=== PATIENT | female | born 1945 | race Caucasian/White ===

== ENCOUNTER → 2018-01-27 | Day surgery (SDC) | payer MEDICARE, MEDICAID ==
[~2018-01-27] MED LIST: Ketorolac 30 MG/ML SDV IVPUSH ONE; Ondansetron 4 MG/2 ML SDV IV ONE; Phenylephrine 1% 10 MG/ML SDV IV ONE; Succinylcholine 200 MG/10 ML MDV IV ONE; fentaNYL 100 MCG/2 ML SDV IV ONE
[2018-01-27] MEDS: Lactated Ringers 1,000 ML IV SCH (11:45)
[2018-01-27 15:14] VITALS: BP 106/84
[2018-01-27] MEDS: traMADol 50 MG Tab PO ONE (16:25)
== END ==
LOC: CC.SDS 11:01
PROVIDERS: ATTEND Dentist General Practice
DX: K02.9 Dental caries, unspecified (principal); G30.9 Alzheimer's disease, unspecified; F41.9 Anxiety disorder, unspecified; Z91.89 Other specified personal risk factors, not elsewhere classified; F32.9 Major depressive disorder, single episode, unspecified; K21.9 Gastro-esophageal reflux disease without esophagitis; E11.9 Type 2 diabetes mellitus without complications
CPT/HCPCS: 00170; 82962; 93005; 93010; A9270-GY; J0330; J1885; J2370; J2405; J3010; J7120

== ENCOUNTER 2018-06-16 10:14 | Emergency (ER) | payer MEDICARE, MEDICAID ==
[2018-06-16] MEDS ORDERED: fentaNYL 100 MCG/2 ML SDV IVPUSH PRN ×2 (10:31→11:33)
--- NOTE | 2018-06-16 10:38 | EDM.PDOC ---
ED HPI GENERAL MEDICAL PROBLEM - General Chief Complaint: Lower Extremity Injury/Pain Stated Complaint: FELL AT PHAN/HIP Time Seen by Provider: 06/16/18 10:15 Source of Information: Reports: Family, Shelter Records History Limitations: Reports: Altered Mental Status - History of Present Illness INITIAL COMMENTS - FREE TEXT/NARRATIVE: Patient presents from [facility] with right hip pain. Was up to the bathroom and when assisting back to her room, staff heard a loud pop from the right hip and then she went down to the floor. Did not hit her head, staff was there when her leg gave out. No loss of consciousness. She is crying with any palpation of her right hip. Is nonverbal. Patient has a history of Alzheimer's Dementia, resident at [facility]. Significant other is at bedside, she does seem to recognize him. Does ambulate with staff at the home on a normal basis. Patient has history of Alzheimer's Dementia, Insulin-dependent diabetes, hypertension. Onset: Today, Sudden Duration: Hour(s): Location: Reports: Lower Extremity, Right - Related Data Allergies Allergy/AdvReac Type Severity Reaction Status Date / Time benzonatate Allergy Difficulty Verified 06/16/18 10:43 [From Merly So] Breathing doxycycline Allergy Cannot Verified 06/16/18 10:43 Remember oxycodone HCl [From Roxicet] Allergy Abdominal Verified 06/16/18 10:43 Pain Home Meds: Home Meds Aspirin [Halfprin] 81 mg PO DAILY 08/13/13 [History] Mirtazapine [Remeron] 15 mg PO BEDTIME 08/13/13 [History] Multivitamin [Daily Multiple Vitamin] 1 tab PO DAILY 08/13/13 [History] Acetaminophen [Tylenol] 325 mg PO Q6HR PRN 01/26/18 [History] Cholecalciferol (Vitamin D3) [Vitamin D3] 1,000 unit PO DAILY 01/26/18 [History] Losartan/Hydrochlorothiazide [Losartan-HCTZ 100-12.5 MG] 1 tab PO DAILY [History] Polyethylene Glycol 3350 [Miralax] 17 gm PO DAILY 01/26/18 [History] Sennosides/Docusate Sodium [DOK Plus] 1 tab PO DAILY PRN 01/26/18 [History] ARIPiprazole [Abilify] 1 mg PO DAILY 01/27/18 [History] Insulin Aspart Protam & Aspart [Novolog Mix 70-30 Flexpen Syrn] 10 unit SQ ACDINNER 01/27/18 [History] Insulin Aspart Protam & Aspart [Novolog Mix 70-30 Flexpen Syrn] 20 unit SUBCUT ACBREAKFAST 01/27/18 [History] Potassium Chloride 20 meq PO DAILY 01/27/18 [History] Glucagon,Human Recombinant [Glucagon Emergency Kit] 1 mg IJ ONETIME PRN [History] Magnesium Hydroxide [Milk of Magnesia] 2,400 mg PO DAILY PRN 06/16/18 [History] Past Medical History Cardiovascular History: Reports: Hypertension Psychiatric History: Reports: Alzheimers Disease Endocrine/Metabolic History: Reports: Diabetes, Type II Social & Family History - Tobacco Use Smoking Status *Q: Unknown Ever Smoked Review of Systems - Review of Systems Review Of Systems: Unable To Obtain ED EXAM, GENERAL - Physical Exam Exam: See Below Exam Limited By: Altered Mental Status General Appearance: Alert, WD/WN, Mild Distress Ears: Normal External Exam, Normal TMs Nose: Normal Inspection, Normal Mucosa, No Blood Throat/Mouth: Normal Inspection, Normal Oropharynx Head: Atraumatic, Normocephalic Neck: Normal Inspection, Supple, Non-Tender Respiratory/Chest: No Respiratory Distress, Lungs Clear, Normal Breath Sounds Cardiovascular: Regular Rate, Rhythm GI/Abdominal: Normal Bowel Sounds, Soft, Non-Tender Extremities: Leg Pain, Limited Range of Motion, Other (tender to right hip with exam) Neurological: Alert, Other (patient has no verbal response, flat affect. Does cry and grimace with any movement of right hip.) Course - Vital Signs Last Recorded V/S: Last Vital Signs Temp 96.7 F 06/16/18 10:33 Pulse 78 06/16/18 10:33 Resp 18 06/16/18 10:33 BP 139/80 06/16/18 10:33 Pulse Ox 95 06/16/18 10:33 - Orders/Labs/Meds Orders: Active Orders 24 hr Category Date Time Status Hip Min 2V or 3V w Pelvis Rt [CR] Routine Exams 06/16/18 Taken fentaNYL [Sublimaze] Med 06/16/18 11:33 Active 25 mcg IVPUSH Q1H PRN Medication Orders Fentanyl (Sublimaze) 25 mcg IVPUSH Q1H PRN PRN Reason: Pain Meds: Medications Generic Name Dose Route Start Last Admin Trade Name Freq PRN Reason Stop Dose Admin Fentanyl 25 mcg 06/16/18 11:33 Sublimaze IVPUSH Q1H PRN Pain Discontinued Medications Generic Name Dose Route Start Last Admin Trade Name Freq PRN Reason Stop Dose Admin Fentanyl 25 mcg 06/16/18 10:31 06/16/18 10:30 Sublimaze IVPUSH 25 mcg Q6H PRN Administration Pain - Re-Assessments/Exams Free Text/Narrative Re-Assessment/Exam: 06/16/18 1055 Contacted [facility], initially spoke with Dr. Ballesteros, orthopedic. Did feel she will need surgical fixation of this. Consulted with Dr. Stewart, hospitalist, who accepted the patient in transfer. S service arranged. Departure - Departure Time of Disposition: 11:30 Disposition: DC/Tfer to [facility] 02 Condition: Fair Clinical Impression: Intertrochanteric fracture, hip - Discharge Information *PRESCRIPTION DRUG MONITORING PROGRAM REVIEWED*: No *COPY OF PRESCRIPTION DRUG MONITORING REPORT IN PATIENT MIRTHA: No Referrals: Alexi Garner MD [Primary Care Provider] - Forms: ED Department Discharge Additional Instructions: Transfer to [facility]. Stewart - My Orders Last 24 Hours: My Active Orders 06/16/18 Hip Min 2V or 3V w Pelvis Rt [CR] Routine 06/16/18 11:33 fentaNYL [Sublimaze] 25 mcg IVPUSH Q1H PRN - Assessment/Plan Last 24 Hours: My Active Orders 06/16/18 Hip Min 2V or 3V w Pelvis Rt [CR] Routine 06/16/18 11:33 fentaNYL [Sublimaze] 25 mcg IVPUSH Q1H PRN
[2018-06-16 10:43] VITALS: BP 139/80
== END 2018-06-16 12:05 ==
LOC: CC.ED 10:14
DX: S72.144A Nondisplaced intertrochanteric fracture of right femur, initial encounter for closed fracture (principal); I10 Essential (primary) hypertension; E11.9 Type 2 diabetes mellitus without complications; G30.9 Alzheimer's disease, unspecified; F02.80 Dementia in other diseases classified elsewhere, unspecified severity, without behavioral disturbance, psychotic disturbance, mood disturbance, and anxiety; Z79.82 Long term (current) use of aspirin; Z79.899 Other long term (current) drug therapy; Z88.1 Allergy status to other antibiotic agents; Z88.6 Allergy status to analgesic agent; Z88.8 Allergy status to other drugs, medicaments and biological substances; X58.XXXA Exposure to other specified factors, initial encounter
CPT/HCPCS: 73502; 96374; 96376; 99285; J3010; 99284

== ENCOUNTER 2018-11-19 06:27 | Emergency (ER) | payer MEDICARE, MEDICAID ==
[2018-11-19 06:30] VITALS: BP 139/82
[2018-11-19] MEDS ORDERED: Lidocaine 1% 20 ML MDV INJECT ONE (06:48)
--- NOTE | 2018-11-19 07:07 | EDM.PDOC ---
ED HPI GENERAL MEDICAL PROBLEM - General Chief Complaint: Laceration Stated Complaint: laceration post fall Time Seen by Provider: 11/19/18 07:00 Source of Information: Reports: Patient History Limitations: Reports: Altered Mental Status (Hx Dementia. Baseline, no changes. moans verbally.) - History of Present Illness INITIAL COMMENTS - FREE TEXT/NARRATIVE: This patient is a 73 year old dementia [facility] patient. 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 Fourdrinier Operator reports patient was on the floor and was awake. She reports patient acting how she normally acts. Denies patient having nausea, vomiting. Onset: Today Onset Date: 11/19/18 Onset Time: 06:00 Location: Reports: Head Severity: Mild Improves with: Reports: None Worsens with: Reports: None Associated Symptoms: Denies: Confusion, Chest Pain, Cough, cough w sputum, Diaphoresis, Fever/Chills, Headaches, Loss of Appetite, Malaise, Nausea/Vomiting , Rash, Seizure, Shortness of Breath, Syncope, Weakness - Related Data Allergies Allergy/AdvReac Type Severity Reaction Status Date / Time benzonatate Allergy Difficulty Verified 11/19/18 06:30 [From Testod So] Breathing doxycycline Allergy Cannot Verified 11/19/18 06:30 Remember oxycodone HCl [From Roxicet] Allergy Abdominal Verified 11/19/18 06:30 Pain Home Meds: Home Meds Aspirin [Halfprin] 81 mg PO DAILY 08/13/13 [History] Mirtazapine [Remeron] 15 mg PO BEDTIME 08/13/13 [History] Multivitamin [Daily Multiple Vitamin] 1 tab PO DAILY 08/13/13 [History] Acetaminophen [Tylenol] 325 mg PO Q6HR PRN 01/26/18 [History] Cholecalciferol (Vitamin D3) [Vitamin D3] 1,000 unit PO DAILY 01/26/18 [History] Losartan/Hydrochlorothiazide [Losartan-HCTZ 100-12.5 MG] 1 tab PO DAILY [History] Polyethylene Glycol 3350 [Miralax] 17 gm PO DAILY 01/26/18 [History] Sennosides/Docusate Sodium [DOK Plus] 1 tab PO DAILY PRN 01/26/18 [History] ARIPiprazole [Abilify] 1 mg PO DAILY 01/27/18 [History] Insulin Aspart Protam & Aspart [Novolog Mix 70-30 Flexpen Syrn] 10 unit SQ ACDINNER 01/27/18 [History] Insulin Aspart Protam & Aspart [Novolog Mix 70-30 Flexpen Syrn] 20 unit SUBCUT ACBREAKFAST 01/27/18 [History] Potassium Chloride 20 meq PO DAILY 01/27/18 [History] Glucagon,Human Recombinant [Glucagon Emergency Kit] 1 mg IJ ONETIME PRN [History] Magnesium Hydroxide [Milk of Magnesia] 2,400 mg PO DAILY PRN 06/16/18 [History] Past Medical History Cardiovascular History: Reports: Hypertension Psychiatric History: Reports: Alzheimers Disease Endocrine/Metabolic History: Reports: Diabetes, Type II Social & Family History - Family History Family Medical History: Noncontributory - Tobacco Use Smoking Status *Q: Never Smoker - Caffeine Use Caffeine Use: Reports: None - Recreational Drug Use Recreational Drug Use: No ED ROS GENERAL - Review of Systems Review Of Systems: See Below Constitutional: Reports: No Symptoms HEENT: Reports: No Symptoms Respiratory: Reports: No Symptoms Cardiovascular: Reports: No Symptoms Endocrine: Reports: No Symptoms GI/Abdominal: Reports: No Symptoms : Reports: No Symptoms Musculoskeletal: Reports: No Symptoms Skin: Reports: Wound Neurological: Reports: Headache (When asked patient if she hurts, she does moan a mumbled response of "head") Psychiatric: Reports: No Symptoms Hematologic/Lymphatic: Reports: No Symptoms Immunologic: Reports: No Symptoms ED EXAM, SKIN/RASH Exam: See Below Exam Limited By: Altered Mental Status (Hx Dementia, no canges from baseline.) General Appearance: Alert, WD/WN, No Apparent Distress Eye Exam: Bilateral Eye: Normal Inspection, PERRL Ears: Normal External Exam, Normal Canal, Hearing Grossly Normal, Normal TMs Nose: Normal Inspection, Normal Mucosa, No Blood Throat/Mouth: Normal Inspection, Normal Lips, Normal Teeth, Normal Gums, Normal Oropharynx, Normal Voice, No Airway Compromise Head: Facial Swelling (right upper forehead, scalp. ), Facial Tenderness (right upper forehead) Neck: Normal Inspection, Supple, Non-Tender, Full Range of Motion Respiratory/Chest: No Respiratory Distress, Lungs Clear, Normal Breath Sounds, No Accessory Muscle Use, Chest Non-Tender Cardiovascular: Normal Peripheral Pulses, Regular Rate, Rhythm, No Edema, No Gallop, No JVD, No Murmur, No Rub Peripheral Pulses: 2+: Radial (L), Radial (R), Popliteal (L), Popliteal (R), Posterior Tibial (L), Posterior Tibial (R), Dorsalis Pedis (L), Dorsalis Pedis ( R) GI/Abdominal: Normal Bowel Sounds, Soft, Non-Tender, No Organomegaly, No Distention, No Abnormal Bruit, No Mass, Pelvis Stable Back Exam: Normal Inspection, Full Range of Motion Extremities: Normal Inspection, Normal Range of Motion, No Pedal Edema, Normal Capillary Refill, Other (Mild grimace and cry with palpation of the right hip/ pelvis. ROM fully intact without complaint or grimace/cry.). No: Limited Range of Motion Neurological: Alert, Other (Eye follows, moans at times, does answer head when asked if pain. Hx Dementia, no changes from baseline per [facility] stafrf and RN. ) Skin: Warm, Dry, Normal Color, No Rash, Wound/Incision Location, Skin: Head (Right upper forehead/hairline laceration. ) Associated features: Tenderness, Swelling Lymphatic: No Adenopathy ED SKIN PROCEDURES - Laceration/Wound Repair Right Anterior Forehead Lac/Wound length In cm: 3 Appearance: Superficial Distal NVT: Neuro & Vascular Intact Anesthetic Type: Local Local Anesthesia - Lidocaine (Xylocaine): 1% Plain Local Anesthetic Volume: 2cc Skin Prep: Chlorhexidine (Hibiciens), Providone-Iodine (Betadine) Saline Irrigation (cc's): 10 Exploration/Debridement/Repair: Wound Explored, In a Bloodless Field, Explored to Base, No Foreign Material Found, Wound Margins Revised Closed with: Sutures Suture Size: other (5-0) # of Sutures: 5 Suture Type: Nylon Sterile Dressing Applied: Provider Tetanus Status Addressed: Yes Complications: No Course - Vital Signs Last Recorded V/S: Last Vital Signs Temp 95.6 F 11/19/18 06:27 Pulse 88 11/19/18 06:27 Resp 20 11/19/18 06:27 BP 139/82 11/19/18 06:27 Pulse Ox 96 11/19/18 06:27 - Orders/Labs/Meds Meds: Medications Discontinued Medications Generic Name Dose Route Start Last Admin Trade Name Freq PRN Reason Stop Dose Admin Diphtheria/Tetanus/Acell Pertussis 0.5 ml 11/19/18 08:16 11/19/18 08:26 Adacel IM 11/19/18 08:17 0.5 ml .ONCE ONE Administration Lidocaine HCl 5 ml 11/19/18 06:48 11/19/18 07:30 Xylocaine 1% INJECT 11/19/18 06:49 5 ml ONETIME ONE Administration - Radiology Interpretation Free Text/Narrative:: Pelvis, Right hip XRAY: Hardware right hip intact. NO fx. no dislocation. CT: Head/Cervical: No fx. No bleed, no shift. CT Results Date: 11/19/18 CT Results Time: 08:22 - Re-Assessments/Exams Free Text/Narrative Re-Assessment/Exam: 11/19/18 08:15 Patient was able to stand and pivot to the ct table without difficulty. With assistance. Departure - Departure Time of Disposition: 09:00 Disposition: Home, Self-Care 01 Condition: Fair Clinical Impression: Laceration Head injury Qualifiers: Encounter type: initial encounter Qualified Code(s): S09.90XA - Unspecified injury of head, initial encounter Strain of hip Qualifiers: Encounter type: initial encounter Laterality: right Qualified Code(s): S76.011A - Strain of muscle, fascia and tendon of right hip, initial encounter - Discharge Information *PRESCRIPTION DRUG MONITORING PROGRAM REVIEWED*: Not Applicable *COPY OF PRESCRIPTION DRUG MONITORING REPORT IN PATIENT MIRTHA: Not Applicable Instructions: Muscle Strain, [id number], Head Injury, Adult, [id number], Laceration Care, Adult, [id number] Forms: ED Department Discharge Additional Instructions: Followup with your primary care provider Primary care provider to remove sutures in about 5 days Keep the wound clean and dry Return to the ER for worsening of condition or any emergent concerns such as redness around site, drainage, fever, vomiting.
[2018-11-19] MEDS ORDERED: Diphtheria,Pertussis(Acell),Tetanus Vaccine 0.5 ML Syringe IM ONE (08:16)
== END 2018-11-19 08:38 | disposition home or self-care (01) ==
LOC: CC.ED 06:27
DX: S01.81XA Laceration without foreign body of other part of head, initial encounter (principal); Z23 Encounter for immunization; E11.9 Type 2 diabetes mellitus without complications; I10 Essential (primary) hypertension; G30.9 Alzheimer's disease, unspecified; F02.80 Dementia in other diseases classified elsewhere, unspecified severity, without behavioral disturbance, psychotic disturbance, mood disturbance, and anxiety; Z79.899 Other long term (current) drug therapy; Z79.82 Long term (current) use of aspirin; Z79.4 Long term (current) use of insulin; Z88.1 Allergy status to other antibiotic agents; Z88.6 Allergy status to analgesic agent; Z88.8 Allergy status to other drugs, medicaments and biological substances; W01.198A Fall on same level from slipping, tripping and stumbling with subsequent striking against other object, initial encounter
CPT/HCPCS: 12013; 70450; 72125; 73502; 90471; 90715; 99284; J2001; 12001; 12002; 99283

== ENCOUNTER 2023-04-01 06:40 | Inpatient (IN) | payer MEDICARE, MEDICAID ==
[2023-04-01 07:43] LABS: BASOPHILS ABSOLUTE AUTO 0.02 10^3/uL (0.00-0.50); BASOPHILS PERCENT AUTO 0.1 % (0-1); EOSINOPHILS ABSOLUTE AUTO 0.01 10^3/uL (0.00-1.50); EOSINOPHILS PERCENT AUTO 0.1 % (0-6); HEMATOCRIT 44.4 % (37.0-47.0); HEMOGLOBIN 14.7 g/dL (12.0-16.0); IMMATURE GRAN ABSOLUTE AUTO 0.02 10^3/uL (0.00-0.49); IMMATURE GRAN PERCENT AUTO 0.1 % (0.0-4.9); LYMPHOCYTES ABSOLUTE AUTO 0.79 10^3/uL (0.60-5.00); LYMPHOCYTES PERCENT AUTO 5.3 % (24-44); MEAN CORPUSCULAR HEMOGLOBIN 30.1 pg (27.0-32.0); MEAN CORPUSCULAR HGB CONC 33.1 g/dL (32.0-36.0); MONOCYTES ABSOLUTE AUTO 0.62 10^3/uL (0.00-1.50); MONOCYTES PERCENT AUTO 4.1 % (0-10); NEUTROPHILS ABSOLUTE AUTO 13.56 x10^3/uL (1.80-8.00); NEUTROPHILS PERCENT AUTO 90.3 % (41-71); PLATELET COUNT,PLT 280 10^3/uL (150-400); RED BLOOD CELL COUNT 4.88 x10^6/uL (4.00-5.50)
[2023-04-01 07:59] LABS: APPEARANCE,URINE CLEAR (CLEAR); BILIRUBIN,URINE NEGATIVE (NEGATIVE); COLOR,URINE YELLOW (YELLOW); GLUCOSE,URINE 500 mg/dL (NEGATIVE); KETONES,URINE 15 mg/dL (NEGATIVE); LEUKOCYTE ESTERASE,URINE TRACE (NEGATIVE); NITRITE,URINE NEGATIVE (NEGATIVE); OCCULT BLOOD,URINE MODERATE (NEGATIVE); PH,URINE 7.5 (4.5-8.0); PROTEIN,URINE 100 mg/dL (NEGATIVE); UROBILINOGEN,URINE 0.2 EU/dL (0.2-1.0)
[2023-04-01] MEDS ORDERED: Ondansetron 4 MG/2 ML SDV IVPUSH PRN (08:13)
[2023-04-01 08:14] LABS: ALBUMIN 3.4 g/dL (3.4-5.0); BILIRUBIN TOTAL 0.4 mg/dL (0.0-1.0); C-REACTIVE PROTEIN 2.18 mg/dL (<=0.30); CALCIUM 9.2 mg/dL (8.4-10.1); CREATININE 1.6 mg/dL (0.6-1.0); EST CRCL DRUG DOSING (CG) 20.81 mL/min; POTASSIUM,K 4.1 mEq/L (3.5-5.0); PROTEIN TOTAL,TP 8.1 g/dL (6.4-8.2)
[2023-04-01 08:19] LABS: CORONAVIRUS COVID-19 NAA NEGATIVE (NEGATIVE); INFLUENZA A NAA NEGATIVE (NEGATIVE); INFLUENZA B NAA NEGATIVE (NEGATIVE)
[2023-04-01 08:20] LABS: BACTERIA,URINE MANY /HPF (NOT SEEN); EPITHELIAL CELLS,URINE OCCASIONAL /HPF (NOT SEEN); RBC,URINE 0-5 /HPF (0-5); WBC CLUMPS,URINE FEW /HPF (NOT SEEN); WBC,URINE 20-30 /HPF (0-5)
[2023-04-01] MEDS: Sodium Chloride 0.9% 1,000 ML IV SCH ×3 (09:15→21:14)
[2023-04-01] MEDS ORDERED: Iopamidol 755 Mg/ML 100 ML Bottle IVPUSH ONE (09:15)
[2023-04-01] MEDS ORDERED: Sodium Chloride 0.9% 1,000 ML IV ONE (10:27)
[2023-04-01] MEDS ORDERED: Polyethylene Glycol 3350 Powder 17 GM Packet PO PRN (13:30)
[2023-04-01] MEDS ORDERED: Naloxone 2 MG/2 ML Syringe IVPUSH PRN (13:30)
[2023-04-01] MEDS ORDERED: Docusate Sodium 100 MG Cap PO PRN (13:30)
[2023-04-01] MEDS ORDERED: Piperacillin/Tazobactam 4.5 GM in Sodium Chloride 0.9% 100 ML IV ONE (13:30)
[2023-04-01] MEDS ORDERED: Ondansetron 4 MG/2 ML SDV IV PRN (13:30)
[2023-04-01] MEDS ORDERED: Acetaminophen 325 MG Tab PO PRN (13:30)
[2023-04-01] MEDS ORDERED: Morphine 2 MG/ML SYRINGE IVPUSH PRN (13:30)
[2023-04-01] MEDS ORDERED: Acetaminophen 650 MG Supp RECTAL PRN (13:30)
[2023-04-01] MEDS ORDERED: Sodium Chloride 0.9% 10 ML Syringe FLUSH PRN (13:30)
[2023-04-01] MEDS ORDERED: Ondansetron 4 MG Tab.DIS PO PRN (13:30)
[2023-04-01] MEDS ORDERED: Glucagon,Human Recombinant 1 MG Vial IM PRN (13:40)
[2023-04-01] MEDS ORDERED: fentaNYL 50 MCG/ML SDV IVPUSH PRN (13:47)
[2023-04-01] MEDS: Insulin NPH HUM/REG Insulin HM 100 UNIT/ML 3 ML Vial SQ SCH (17:57)
[2023-04-01] MEDS: Enoxaparin 30 MG/0.3 ML Syringe SUBCUT SCH (19:47)
[2023-04-01] MEDS: Acetaminophen 500 MG Tab PO SCH (19:47)
[2023-04-01] MEDS: Mirtazapine 15 MG Tab PO SCH (19:47)
[2023-04-01] MEDS: Piperacillin/Tazobactam 3.375 GM in Sodium Chloride 0.9% 100 ML IV SCH (21:07)
[2023-04-02] MEDS: Piperacillin/Tazobactam 3.375 GM in Sodium Chloride 0.9% 100 ML IV SCH ×3 (05:21→21:15)
[2023-04-02] MEDS: Sodium Chloride 0.9% 1,000 ML IV SCH ×2 (07:25→18:10)
[2023-04-02 08:01] LABS: BASOPHILS ABSOLUTE AUTO 0.04 10^3/uL (0.00-0.50); BASOPHILS PERCENT AUTO 0.5 % (0-1); EOSINOPHILS ABSOLUTE AUTO 0.18 10^3/uL (0.00-1.50); EOSINOPHILS PERCENT AUTO 2.1 % (0-6); HEMATOCRIT 38.6 % (37.0-47.0); HEMOGLOBIN 12.6 g/dL (12.0-16.0); IMMATURE GRAN ABSOLUTE AUTO 0.01 10^3/uL (0.00-0.49); IMMATURE GRAN PERCENT AUTO 0.1 % (0.0-4.9); LYMPHOCYTES ABSOLUTE AUTO 2.14 10^3/uL (0.60-5.00); MEAN CORPUSCULAR HEMOGLOBIN 30.2 pg (27.0-32.0); MEAN CORPUSCULAR HGB CONC 32.6 g/dL (32.0-36.0); MEAN CORPUSCULAR VOLUME 92.6 fL (83.0-97.0); MONOCYTES ABSOLUTE AUTO 0.54 10^3/uL (0.00-1.50); MONOCYTES PERCENT AUTO 6.3 % (0-10); NEUTROPHILS ABSOLUTE AUTO 5.65 x10^3/uL (1.80-8.00); PLATELET COUNT,PLT 242 10^3/uL (150-400); RED BLOOD CELL COUNT 4.17 x10^6/uL (4.00-5.50); WHITE BLOOD CELL COUNT,WBC 8.6 10^3/uL (4.0-11.0)
[2023-04-02 08:09] LABS: BILIRUBIN TOTAL 0.5 mg/dL (0.0-1.0); C-REACTIVE PROTEIN 2.77 mg/dL (<=0.30); CALCIUM 8.3 mg/dL (8.4-10.1); EST CRCL DRUG DOSING (CG) 33.3 mL/min; POTASSIUM,K 3.6 mEq/L (3.5-5.0)
[2023-04-02 08:30] LABS: LACTIC ACID 1.2 mmol/L (0.4-2.0)
[2023-04-02] MEDS: Potassium Chloride 10 MEQ Tab.ER PO SCH (08:40)
[2023-04-02] MEDS: Losartan 25 MG Tab PO SCH (08:42)
[2023-04-02] MEDS: Acetaminophen 500 MG Tab PO SCH ×2 (08:42→20:14)
[2023-04-02] MEDS: Loratadine 10 MG Tab PO SCH (08:43)
[2023-04-02] MEDS: Polyethylene Glycol 3350 Powder 17 GM Packet PO SCH (08:43)
[2023-04-02] MEDS: Aspirin 81 MG Tab.EC PO SCH (08:43)
[2023-04-02] MEDS: Insulin NPH HUM/REG Insulin HM 100 UNIT/ML 3 ML Vial SQ SCH ×2 (09:00→17:28)
[2023-04-02] MEDS: ARIPIPRAZOLE 2 MG PO SCH (15:21)
[2023-04-02] MEDS: Enoxaparin 30 MG/0.3 ML Syringe SUBCUT SCH (20:14)
[2023-04-02] MEDS: Mirtazapine 15 MG Tab PO SCH (20:15)
[2023-04-02] MEDS ORDERED: Sodium Chloride 0.9% 1,000 ML IV SCH (21:30)
[2023-04-03] MEDS: Piperacillin/Tazobactam 3.375 GM in Sodium Chloride 0.9% 100 ML IV SCH ×3 (04:59→21:00)
[2023-04-03] MEDS: Acetaminophen 500 MG Tab PO SCH ×2 (07:55→19:27)
[2023-04-03] MEDS: Aspirin 81 MG Tab.EC PO SCH (07:55)
[2023-04-03] MEDS: Losartan 25 MG Tab PO SCH (07:56)
[2023-04-03] MEDS: Polyethylene Glycol 3350 Powder 17 GM Packet PO SCH (07:56)
[2023-04-03] MEDS: Loratadine 10 MG Tab PO SCH (07:56)
[2023-04-03] MEDS: Potassium Chloride 10 MEQ Tab.ER PO SCH (07:56)
[2023-04-03] MEDS: ARIPIPRAZOLE 2 MG PO SCH (08:14)
[2023-04-03] MEDS: Insulin NPH HUM/REG Insulin HM 100 UNIT/ML 3 ML Vial SQ SCH ×2 (08:15→17:21)
[2023-04-03 08:22] LABS: BASOPHILS ABSOLUTE AUTO 0.05 10^3/uL (0.00-0.50); BASOPHILS PERCENT AUTO 0.6 % (0-1); EOSINOPHILS ABSOLUTE AUTO 0.21 10^3/uL (0.00-1.50); EOSINOPHILS PERCENT AUTO 2.7 % (0-6); HEMATOCRIT 39.9 % (37.0-47.0); HEMOGLOBIN 13.3 g/dL (12.0-16.0); IMMATURE GRAN ABSOLUTE AUTO 0.02 10^3/uL (0.00-0.49); IMMATURE GRAN PERCENT AUTO 0.3 % (0.0-4.9); LYMPHOCYTES ABSOLUTE AUTO 2.21 10^3/uL (0.60-5.00); LYMPHOCYTES PERCENT AUTO 28.6 % (24-44); MEAN CORPUSCULAR HEMOGLOBIN 30.4 pg (27.0-32.0); MEAN CORPUSCULAR HGB CONC 33.3 g/dL (32.0-36.0); MEAN CORPUSCULAR VOLUME 91.1 fL (83.0-97.0); MONOCYTES ABSOLUTE AUTO 0.53 10^3/uL (0.00-1.50); MONOCYTES PERCENT AUTO 6.8 % (0-10); NEUTROPHILS ABSOLUTE AUTO 4.72 x10^3/uL (1.80-8.00); PLATELET COUNT,PLT 244 10^3/uL (150-400); RED BLOOD CELL COUNT 4.38 x10^6/uL (4.00-5.50); WHITE BLOOD CELL COUNT,WBC 7.7 10^3/uL (4.0-11.0)
[2023-04-03 08:33] LABS: LACTIC ACID 0.8 mmol/L (0.4-2.0)
[2023-04-03 08:51] LABS: ALBUMIN 2.9 g/dL (3.4-5.0); BILIRUBIN TOTAL 0.6 mg/dL (0.0-1.0); C-REACTIVE PROTEIN 1.7 mg/dL (<=0.30); EST CRCL DRUG DOSING (CG) 33.3 mL/min; POTASSIUM,K 3.3 mEq/L (3.5-5.0); PROTEIN TOTAL,TP 7.2 g/dL (6.4-8.2)
[2023-04-03 10:38] LABS: CALCIUM 8.9 mg/dL (8.4-10.1)
[2023-04-03] MEDS: Enoxaparin 30 MG/0.3 ML Syringe SUBCUT SCH (19:27)
[2023-04-03] MEDS: Mirtazapine 15 MG Tab PO SCH (19:27)
[2023-04-04] MEDS: Piperacillin/Tazobactam 3.375 GM in Sodium Chloride 0.9% 100 ML IV SCH ×3 (05:16→21:51)
[2023-04-04] MEDS: Potassium Chloride 10% 20 MEQ/15 ML Soln 15 ML UD Cup PO SCH (07:49)
[2023-04-04] MEDS: Loratadine 10 MG Tab PO SCH (07:49)
[2023-04-04] MEDS: Losartan 25 MG Tab PO SCH (07:49)
[2023-04-04] MEDS: Aspirin 81 MG Tab.EC PO SCH (07:49)
[2023-04-04] MEDS: Acetaminophen 500 MG Tab PO SCH ×2 (07:49→19:51)
[2023-04-04] MEDS: ARIPIPRAZOLE 2 MG PO SCH (07:50)
[2023-04-04 07:58] LABS: BASOPHILS ABSOLUTE AUTO 0.04 10^3/uL (0.00-0.50); BASOPHILS PERCENT AUTO 0.6 % (0-1); EOSINOPHILS ABSOLUTE AUTO 0.17 10^3/uL (0.00-1.50); EOSINOPHILS PERCENT AUTO 2.7 % (0-6); HEMATOCRIT 41.5 % (37.0-47.0); HEMOGLOBIN 14.1 g/dL (12.0-16.0); IMMATURE GRAN ABSOLUTE AUTO 0.02 10^3/uL (0.00-0.49); IMMATURE GRAN PERCENT AUTO 0.3 % (0.0-4.9); LYMPHOCYTES ABSOLUTE AUTO 1.56 10^3/uL (0.60-5.00); LYMPHOCYTES PERCENT AUTO 24.5 % (24-44); MEAN CORPUSCULAR HEMOGLOBIN 30.1 pg (27.0-32.0); MEAN CORPUSCULAR VOLUME 88.7 fL (83.0-97.0); MONOCYTES ABSOLUTE AUTO 0.48 10^3/uL (0.00-1.50); MONOCYTES PERCENT AUTO 7.5 % (0-10); NEUTROPHILS ABSOLUTE AUTO 4.11 x10^3/uL (1.80-8.00); NEUTROPHILS PERCENT AUTO 64.4 % (41-71); PLATELET COUNT,PLT 249 10^3/uL (150-400); RED BLOOD CELL COUNT 4.68 x10^6/uL (4.00-5.50); WHITE BLOOD CELL COUNT,WBC 6.4 10^3/uL (4.0-11.0)
[2023-04-04 08:18] LABS: LACTIC ACID 0.8 mmol/L (0.4-2.0)
[2023-04-04 08:42] LABS: BILIRUBIN TOTAL 0.5 mg/dL (0.0-1.0); C-REACTIVE PROTEIN 0.98 mg/dL (<=0.30); CALCIUM 9.4 mg/dL (8.4-10.1); CREATININE 1.1 mg/dL (0.6-1.0); EST CRCL DRUG DOSING (CG) 30.28 mL/min; POTASSIUM,K 3.3 mEq/L (3.5-5.0); PROTEIN TOTAL,TP 7.4 g/dL (6.4-8.2)
[2023-04-04] MEDS: Insulin NPH HUM/REG Insulin HM 100 UNIT/ML 3 ML Vial SQ SCH ×2 (09:06→17:37)
[2023-04-04] MEDS ORDERED: Potassium Chloride 10% 20 MEQ/15 ML Soln 15 ML UD Cup PO ONE (13:56)
[2023-04-04] MEDS: Enoxaparin 30 MG/0.3 ML Syringe SUBCUT SCH (19:51)
[2023-04-04] MEDS: Mirtazapine 15 MG Tab PO SCH (19:51)
[2023-04-05] MEDS: Piperacillin/Tazobactam 3.375 GM in Sodium Chloride 0.9% 100 ML IV SCH (05:43)
[2023-04-05 07:30] LABS: BASOPHILS ABSOLUTE AUTO 0.05 10^3/uL (0.00-0.50); BASOPHILS PERCENT AUTO 0.6 % (0-1); EOSINOPHILS ABSOLUTE AUTO 0.28 10^3/uL (0.00-1.50); EOSINOPHILS PERCENT AUTO 3.3 % (0-6); HEMATOCRIT 42.4 % (37.0-47.0); HEMOGLOBIN 14.2 g/dL (12.0-16.0); IMMATURE GRAN ABSOLUTE AUTO 0.04 10^3/uL (0.00-0.49); IMMATURE GRAN PERCENT AUTO 0.5 % (0.0-4.9); LYMPHOCYTES ABSOLUTE AUTO 2.06 10^3/uL (0.60-5.00); MEAN CORPUSCULAR HEMOGLOBIN 29.8 pg (27.0-32.0); MEAN CORPUSCULAR HGB CONC 33.5 g/dL (32.0-36.0); MEAN CORPUSCULAR VOLUME 89.1 fL (83.0-97.0); MONOCYTES ABSOLUTE AUTO 0.63 10^3/uL (0.00-1.50); MONOCYTES PERCENT AUTO 7.3 % (0-10); NEUTROPHILS ABSOLUTE AUTO 5.54 x10^3/uL (1.80-8.00); NEUTROPHILS PERCENT AUTO 64.3 % (41-71); PLATELET COUNT,PLT 267 10^3/uL (150-400); RED BLOOD CELL COUNT 4.76 x10^6/uL (4.00-5.50); WHITE BLOOD CELL COUNT,WBC 8.6 10^3/uL (4.0-11.0)
[2023-04-05 07:45] LABS: BILIRUBIN TOTAL 0.4 mg/dL (0.0-1.0); CALCIUM 9.5 mg/dL (8.4-10.1); CREATININE 1.2 mg/dL (0.6-1.0); EST CRCL DRUG DOSING (CG) 27.75 mL/min; POTASSIUM,K 3.5 mEq/L (3.5-5.0); PROTEIN TOTAL,TP 7.4 g/dL (6.4-8.2)
[2023-04-05] MEDS: Losartan 25 MG Tab PO SCH (07:46)
[2023-04-05] MEDS: Loratadine 10 MG Tab PO SCH (07:46)
[2023-04-05] MEDS: Aspirin 81 MG Tab.EC PO SCH (07:46)
[2023-04-05] MEDS: Acetaminophen 500 MG Tab PO SCH (07:46)
[2023-04-05] MEDS: Potassium Chloride 10% 20 MEQ/15 ML Soln 15 ML UD Cup PO SCH (07:47)
[2023-04-05] MEDS: ARIPIPRAZOLE 2 MG PO SCH (07:48)
[2023-04-05] MEDS: Insulin NPH HUM/REG Insulin HM 100 UNIT/ML 3 ML Vial SQ SCH (08:00)
[2023-04-05 12:05] VITALS: BP 150/69; PULSE 69
== END 2023-04-05 12:21 | disposition home or self-care (01) | DRG 445 ==
LOC: CC.ED 06:40 → CC.MS 12:15 → UNDOADMIN 12:15 → CC.MS 13:05
PROVIDERS: ADMIT Nurse Practitioner Family; ATTEND Nurse Practitioner Family
DX: K80.00 Calculus of gallbladder with acute cholecystitis without obstruction (principal); E87.20 Acidosis, unspecified; N30.01 Acute cystitis with hematuria; D72.829 Elevated white blood cell count, unspecified; Z20.822 Contact with and (suspected) exposure to COVID-19; G30.9 Alzheimer's disease, unspecified; F02.80 Dementia in other diseases classified elsewhere, unspecified severity, without behavioral disturbance, psychotic disturbance, mood disturbance, and anxiety; K59.09 Other constipation; E11.9 Type 2 diabetes mellitus without complications; I10 Essential (primary) hypertension; Z88.1 Allergy status to other antibiotic agents; Z88.5 Allergy status to narcotic agent; Z88.8 Allergy status to other drugs, medicaments and biological substances; N31.9 Neuromuscular dysfunction of bladder, unspecified; N39.498 Other specified urinary incontinence; Z79.4 Long term (current) use of insulin; Z79.82 Long term (current) use of aspirin; Z79.899 Other long term (current) drug therapy
CPT/HCPCS: 0240U; 36415; 71045; 74177; 76705; 80053; 81001; 82947; 83605; 83690; 85025; 86140; 87040; 87086; 87088; 87186; 96361; 96374; 99285-25; A9270-GY; J1650; J1815-GY; J2405; J2543; J3490; J7030; Q9967